=== PATIENT | male | born 1975 | race Caucasian/White ===

== ENCOUNTER → 2018-07-07 | Outpatient (CLI) | payer BC ==
[~2018-07-07] MED LIST: GADOBUTROL 10 MMOL/10 ML VIAL IV ONE
--- NOTE | 2018-07-07 15:59 | KCIC ---
MRI abdomen without with contrast 07/07/2018 CLINICAL INDICATION: Liver lesion. COMPARISON: CT abdomen 07/05/2018 TECHNIQUE: Multisequence, multiplanar MR imaging of the abdomen was performed without and following the intravenous administration of Gadavist gadolinium based contrast material. FINDINGS: Lower thorax: Heart size is normal. Liver: Diffuse dropout of the parenchyma on opposed phase imaging consistent with steatosis. 0.3 cm benign cyst and peripheral hepatic segment 8. There are similar appearing T2 hyperintensities with peripheral discontinuous nodular progressive enhancement in both lobes of the liver seen in hepatic segment 7 measuring 0.8 cm series 5/image 5, segment 8 measuring 1.1 cm series 5/image 8, segment 7 measuring 0.8 cm image 10, central segment 7 measuring 0.5 cm image 11, segment 6 measuring 0.3 cm series 9/image 41, segment 6 measuring 0.4 cm series 5/image 25 and peripheral segment 3 measuring 0.5 cm series 10/image 16. Biliary system: Gallbladder normal in size and configuration. No intra or extrahepatic biliary ductal dilatation. Spleen: Unremarkable. Adrenal glands and kidneys: Adrenal glands unremarkable. Both kidneys present without hydronephrosis. There is a simple cyst in the interpolar right kidney. Pancreas: Unremarkable. Abdominal aorta and major vessels: Abdominal aorta is normal in caliber. Major portal veins are patent. Lymph nodes: No abdominal lymphadenopathy. Bowel and peritoneum: Visualized small and large bowel loops are normal in caliber without obstruction. No abdominal free fluid. IMPRESSION: 1. Multifocal benign hepatic hemangiomas. 2. Small simple right renal cyst. 3. Hepatic steatosis. Electronically signed by: Young Abdul MD (07/07/2018 3:55 PM) [id number]
== END | disposition home or self-care (01) ==
LOC: KCIC MRI 14:22
PROVIDERS: ATTEND Physician Assistant
DX: K76.0 Fatty (change of) liver, not elsewhere classified (principal); D18.09 Hemangioma of other sites; N28.1 Cyst of kidney, acquired
CPT/HCPCS: 74183; A9585